=== PATIENT | female | born 1960 | race Caucasian/White ===

== ENCOUNTER → 2017-12-13 16:43 | Outpatient (REF) | payer BC, SELFPAY ==
--- NOTE | 2017-12-13 15:45 | PAPFT_PTH ---
PATIENT: Claudia Lanier LOC: [facility] U#:[id number] AGE/SX: 65/F ROOM: RE12/13/[address]: Bryanna Leiva MD, DC : 1960 BED: DIS: SPEC #: [id number] RECD: 12/14/17 12:44 STATUS: MARIA ISABEL REShawn #: [id number] JIAN: 12/13/17 15:[address]: Bryanna Leiva DEPT: [facility] Cytology RECD BY: Ynes Mak Tissues: 1 - CX/ENDOCX FOR PAP SMEARS Procedures: PAP THIN PREP/UVM Screening HPV DNA PROBE Comments: [id number]
== END ==
LOC: LBN 16:43
PROVIDERS: PCP Family Medicine; Visit Provider Family Medicine
DX: Z12.4 Encounter for screening for malignant neoplasm of cervix (principal); Z11.51 Encounter for screening for human papillomavirus (HPV)
CPT/HCPCS: 88142; 87624

== ENCOUNTER 2017-12-23 07:16 | Outpatient (CLI) | payer BC, SELFPAY ==
[2017-12-23 12:52] LABS: ALT 41 U/L (12-78); AST 24 U/L (15-37); Albumin 3.9 g/dL (3.4-5.0); Alkaline Phosphatase 100 U/L (46-116); Anion Gap 5.4 mmol/L (3-11); BUN 13 mg/dL (7-18); Bilirubin, Total 0.5 mg/dL (0.2-1.0); CO2 30.6 mmol/L (21.0-32.0); Calcium 8.7 mg/dL (8.5-10.1); Chloride 105 mmol/L (98-107); Cholesterol 219 mg/dL (50-200); Glucose 97 mg/dL (70-100); HDL Cholesterol 73 mg/dL (40-60); LDL CHOLESTEROL 139 mg/dL (<100); Potassium 4.2 mmol/L (3.5-5.1); Sodium 141 mmol/L (136-145); Total Protein 7.4 g/dL (6.4-8.2); Triglyceride 60 mg/dL (30-150)
== END 2017-12-23 07:17 ==
PROVIDERS: PCP Family Medicine; Visit Provider Family Medicine
DX: Z00.00 Encounter for general adult medical examination without abnormal findings (principal)
CPT/HCPCS: 36415; 80053; 80061; 83721; 84443

== ENCOUNTER 2018-12-18 12:13 | Outpatient (REF) | payer BC, SELFPAY ==
--- NOTE | 2018-12-18 11:45 | PAPFT_PTH ---
PATIENT: Claudia Lanier LOC: [facility] U#:[id number] AGE/SX: 58/F ROOM: RE12/18/[address]: Bryanna Leiva MD, DC : 1960 BED: DIS: 12/18/2018 SPEC #: [id number] RECD: 12/19/18 12:49 STATUS: MARIA ISABEL REQ #: [id number] JIAN: 12/18/18 11:[address]: Bryanna Leiva DEPT: [facility] Cytology RECD BY: Ynes Mak Tissues: 1 - CX/ENDOCX FOR PAP SMEARS Procedures: PAP THIN PREP/UVM Screening HPV DNA PROBE Comments: [id number]
== END 2018-12-18 12:33 ==
LOC: LBN 12:13
PROVIDERS: PCP Family Medicine; Visit Provider Family Medicine
DX: Z12.4 Encounter for screening for malignant neoplasm of cervix (principal); Z11.51 Encounter for screening for human papillomavirus (HPV)
CPT/HCPCS: 88142; 87624

== ENCOUNTER 2019-01-25 01:54 | Outpatient (CLI) | payer BC, SELFPAY ==
--- NOTE | 2019-01-25 08:30 | ETT_ITS ---
APPROVED REPORT Exam: Exercise Treadmill Patient Location: Out-Patient Room/Bed: Stress Nurse: Dolly Anderson RN Rhythm: NSR Indications: Patient reports right sided chest tightness and left scapula soreness at rest. Pt believ es this is related to stress. Discomfort does not change with exercise and it is reproducable with pa lpation. Pt reports her sister 2 weeks ago from a heart attack, she was 58 years old. She is concerned regarding her significant family hx for heart disease. Her mother at age 60 ye ars from an [place]. Her maternal grandfather at age 54 years also from an [place], per patient report . Medical History Medical History: Smoker:No Prior Cath:No Prior PCI:No History of DE:No Heart Failure:Unknown Prior CA BG:No Prior Heart Valve Surgery:No Diabetic:No Angina:Atypical Family History of CV Disease:Yes Histo ry Notes:Significant family hx of heart disease: Sister age 58 years from [place]. Mother decea sed age 60 years from [place]. Maternal ... Allergies: No known drug allergies Cardiac Risk Factors: Hyperlipidemia Pretest Chest Pain Characteristics: Atypical angina, Non-exertional Chest pain Exercise History: Physically active Stress Test Details Test: Exercise stress testing was performed using a Richard protocol. Rest Stress HR Resting HR: 63 bpm Max Heart Rate (APMHR): 159 bpm Max HR Achieved: 164 bpm Target HR (85% APMHR): 135 bpm % of APMHR: 103 Recovery HR: 87 bpm HR response to stress: Normal HR response to stress BP Resting BP: 138/82 mmHg Max BP: 190/82 mmHg Recovery BP: 134/80 mmHg BP response to stress: Normal blood pressure response to stress. ECG Resting ECG: Sinus Rhythm, low voltage precordial leads. Stress ECG: Sinus Tachycardia ST Change: No significant ST segment changes. Arrhythmia: VPC's Recovery ECG: Sinus Rhythm Recovery ST Change: No significant St segment changes. Clinical Reason for Termination: Maximal effort Highest Stage Achieved: Stage 4: 4.2 mph at 16% grade. Exercise capacity: 13.48 METs Overall Exercise Capacity for Age: Excellent Scale: Active Stress ECG Conclusion 1. This is a maximal study with normal heart rate and blood pressure response. 2. Patient demonstrated good exercise tolerance. 3. ECG: Non-ischemic 4. Gaona treadmill score predicts low risk for adverse myocardial events. No prior study available for comparison. Test Summary 1 00:59 0 0 0 1 130/80 1 00:00 0 0 84 1 130/80 1 03:00 10 1.7 99 4.64 134/72 2 02:59 12 2.5 120 7.05 146/72 3 03:00 14 3.4 133 10.16 162/84 4 02:00 16 4.2 162 13.48 162/84 1 06:30 0 0 164 1 134/80
== END 2019-01-25 02:14 ==
PROVIDERS: PCP Family Medicine; Visit Provider Family Medicine
DX: R07.89 Other chest pain (principal); Z82.49 Family history of ischemic heart disease and other diseases of the circulatory system; E78.5 Hyperlipidemia, unspecified
CPT/HCPCS: 93017

== ENCOUNTER 2019-03-26 00:54 | Outpatient (CLI) | payer BC, SELFPAY ==
--- NOTE | 2019-03-26 15:17 | DI.US_ITS ---
EXAM: US PELVIS TRANSVAGINAL CLINICAL HISTORY: DYSFUNCTION UTERINE BLEEDING, N93.8 TECHNIQUE: Ultrasound performed using standard protocol. COMPARISON: PELVIS TRANSVAG from 10/30/2014 FINDINGS: The uterus measures 7 centimeters long by 3.7 centimeters AP x 4.4 centimeters transverse. The endom etrial stripe is within normal limits at 5.8 millimeters. There is again seen a submucosal fibroid. It measures 1.5 x 1.5 x 1.8 centimeters. This compares to 2.1 centimeters on the prior examination. The patient is status post left oophorectomy. The right ovary measures 1.9 x 1.7 x 1.7 centimeters. There is normal blood flow. No evidence of to rsion. No significant free pelvic fluid or hydronephrosis is identified. Note is made of a 1.8 centimeters cyst on the right kidney. IMPRESSION: 1. Uterine fibroid. 2. Status post left oophorectomy.
== END 2019-03-26 01:14 ==
PROVIDERS: PCP Family Medicine; Visit Provider Family Medicine
DX: N93.8 Other specified abnormal uterine and vaginal bleeding (principal); D25.0 Submucous leiomyoma of uterus; Z90.721 Acquired absence of ovaries, unilateral
CPT/HCPCS: 76830; 76856

== ENCOUNTER 2020-04-10 00:13 | Outpatient (CLI) | payer BC, SELFPAY ==
--- NOTE | 2020-04-10 | DI.US_ITS ---
EXAM: US THYROID CLINICAL HISTORY: MULTI NODULAR GOITER,E04.2 TECHNIQUE: Ultrasound performed using standard protocol. COMPARISON: US US PELVIS TRANSVAGINAL from 03/26/2019 FINDINGS: Thyroid ultrasound was performed according to the usual protocol. Right thyroid lobe measures 49 x 20 x 22 millimeters. Left thyroid lobe measures 52 x 15 x 15 millim eters. The isthmus is about 5 millimeters in thickness. Thyroid parenchyma is heterogeneous with multiple nodules. Evaluation of the largest nodules was per formed with assignment of TI-RADS level by morphologic assessment. In the mid to inferior pole of the left thyroid lobe, there is a TR 5 lesion measuring 21 millimeters in greatest diameter. This is highly suspicious with fine needle aspiration recommended for size gr eater than 1 cm. In the midpole of the right thyroid lobe, there is a 25 millimeter in greatest diameter lesion with T R 3 classification, mildly suspicious, fine needle aspiration recommended for size greater than or eq ual to 2.5 cm. Additional right and left TR 4 lesions also noted, less than 1 cm in diameter, no follow up recommend ed. IMPRESSION: Fine needle aspiration recommended for bilateral thyroid nodules as described above utilizing TI-RADS criteria. DATA REPOSITORY:
== END 2020-04-10 00:33 ==
PROVIDERS: PCP Family Medicine; Visit Provider Otolaryngology
DX: E04.2 Nontoxic multinodular goiter (principal)
CPT/HCPCS: 76536

== ENCOUNTER 2021-01-02 05:03 | Outpatient (CLI) | payer BC, SELFPAY ==
--- NOTE | 2021-01-02 08:30 | DI.RAD_ITS ---
Exam(s) XR KNEE RT 3V AP,LAT,DANILO EXAM: XR KNEE RT 3V AP,LAT,DANILO CLINICAL HISTORY: r knee locking M23.91 INTERNAL DERANGEMENT RT KNEE. TECHNIQUE: 2D digital imaging was performed. COMPARISON: No exams were available for comparison FINDINGS: BONES: No acute fracture is present. No bony destructive lesion is seen. JOINTS: The knee is normally aligned. No joint effusion is seen. Mild narrowing medial femoral tibial joint space. Mild periarticular spurring. SOFT TISSUE: Normal. IMPRESSION: Mild degenerative changes of the medial femoral tibial joint space. DATA REPOSITORY: RADIATION DOSE DELIVERED:
== END 2021-01-02 05:23 ==
PROVIDERS: PCP Family Medicine; Visit Provider Family Medicine
DX: M23.91 Unspecified internal derangement of right knee (principal); M17.11 Unilateral primary osteoarthritis, right knee
CPT/HCPCS: 73562

== ENCOUNTER 2021-01-12 17:42 | Emergency (ER) | payer BC, SELFPAY ==
[2021-01-12 17:45] VITALS: BP 135/88; PULSE 75; RESP 16; TEMP 36.8; O2SAT 99
--- NOTE | 2021-01-12 17:45 | DI.RAD_ITS ---
Exam(s) XR WRIST LT COMPLETE EXAM: XR WRIST LT COMPLETE CLINICAL HISTORY: LEONARDO, r/o fx. TECHNIQUE: 2D digital imaging was performed of the left wrist. Four images were obtained. Scaphoid , PA, oblique and lateral views were obtained. COMPARISON: No exams were available for comparison FINDINGS: BONES: There is an acute nondisplaced fracture through the distal metaphysis of the left radius. The re does appear to be distal extension into the articular surface. No bony destructive lesion is seen . JOINTS: The carpal bones are normally aligned. SOFT TISSUE: Normal. IMPRESSION: Nondisplaced intra-articular distal left radial fracture. DATA REPOSITORY: RADIATION DOSE DELIVERED:
--- NOTE | 2021-01-12 17:53 | W.ED.GENAD ---
Discharge Plan Disposition Patient Disposition: HOME Condition: Stable Discharge Details Clinical Impression: Distal radius fracture, left Primary Care Provider: Bryanna Leiva ED Provider: America Coy Home Meds and New Rx's Prescriptions: Continued turmeric root extract 500 mg capsule See Rx Instructions PO DAILY RF: 0 garlic 600 mg capsule 1,000 mg PO BID RF: 0 coenzyme Q10 [CoQ-10] 100 mg capsule 100 mg PO DAILY RF: 0 Complete Multivitamin tablet 1 tab PO DAILY RF: 0 magnesium oxide 400 mg magnesium tablet 400 mg PO QHS RF: 0 vitamin K2 40 mcg tablet See Rx Instructions PO DAILY RF: 0 omega-3 fatty acids 1,000 mg capsule 4,000 mg PO DAILY RF: 0 ascorbic acid (vitamin C) [Vitamin C] 1,000 mg tablet 1,600 mg PO BID RF: 0 cholecalciferol (vitamin D3) [Vitamin D3] 25 mcg (1,000 unit) capsule 5,000 unit PO DAILY RF: 0 Discharge Instructions Instructions: Wrist Fracture in Adults (ED) Additional Instructions: Rest, ice, and elevate the affected area as much as possible. Alternate tylenol and motrin as needed and directed for pain. Take the oxycodone for pain not relieved with Tylenol or Motrin. Call the orthopedics office tomorrow morning to schedule a follow-up appointment for reevaluation this week. Return immediately to the emergency department if you develop any worsening or new concerning symptoms. Referrals: Suraj Ford MD [ [facility] STAFF PHYSICIAN] - Discharge Data Discharge Date/Time-TO BE ENTERED AT DEPARTURE: 01/12/21 20:27 Discharge Physician: America Coy Medical Decision Making 61-year-old female presents with left wrist pain with radiation to her left forearm after fall onto her left wrist while playing pickle ball today. She has tenderness to palpation of left dorsal and volar wrist with limitation of range of motion secondary to pain. She has edema noted on the volar aspect of the distal forearm just above the wrist. There is otherwise no significant deformity. She is neurovascular intact. There is no evidence of trauma to her left elbow or shoulder. Patient referred for x-rays which note nondisplaced fracture through the distal left radius. Minimal impaction dorsally. It appears to be mildly comminuted and intra-articular. Patient declined any pain medication here. She was offered oxycodone for home and a prescription but declined. A volar splint was placed at bedside and a sling given. Advised on the importance of RICE, alternating Tylenol and motrin. Patient placed on orthopedic follow-up list. Usual and customary return precautions given prior to discharge. Medical Records Medical records reviewed: Yes I reviewed the patient's medical records. Imaging Data Radiologic Study: Radiologist's impression: XR Left Wrist Exam date and time: 01/12/2021 6:00 PM Age: 61 years old Clinical indication: Pain; Wrist; Left; Patient HX: Mikayla; Additional info: R/O FX TECHNIQUE: Imaging protocol: XR Left wrist. Views: 3 or more views. COMPARISON: No relevant prior studies available. FINDINGS: Bones/joints: There is a nondisplaced fracture through the distal left radius. Minimal impaction dorsally. It appears to be mildly comminuted and intra-articular. Soft tissues: Normal. IMPRESSION: Distal left radial fracture as above HPI General Mode of arrival: ambulatory. Date/Time Provider Initiated Documentation: 01/12/21 17:53. Limitations to Documentation: no limitations. Information obtained by: patient. HPI Narrative: Patient is a 61-year-old female who presents with left wrist pain after fall while playing pickle ball prior to arrival. Patient states she slipped and fell onto her left wrist. She states she does have radiating pain into her forearm but states the main pain is in her left wrist. She denies any other injuries. She took 2 ibuprofen prior to arrival Related Data Home Medications Medication Instructions Recorded Confirmed coenzyme Q10 100 mg capsule 100 mg PO DAILY 09/14/18 01/12/21 multivitamin,[id number]-[id number]-ehlfvpms 1 tab PO DAILY 09/14/18 01/12/21 magnesium oxide 400 mg PO QHS tab 12/20/19 01/12/21 turmeric root extract 500 mg See Rx Instructions PO DAILY 12/20/19 01/12/21 capsule vitamin K2 40 mcg tablet See Rx Instructions PO DAILY 12/20/19 01/12/21 ascorbic acid (vitamin C) 1,000 mg 1,600 mg PO BID tab 12/25/20 01/12/21 tablet cholecalciferol (vitamin D3) 25 5,000 unit PO DAILY cap 12/25/20 01/12/21 mcg (1,000 unit) capsule garlic 600 mg capsule 1,000 mg PO BID cap 12/25/20 01/12/21 omega-3 fatty acids 1,000 mg 4,000 mg PO DAILY cap 12/25/20 01/12/21 capsule Allergies Allergy/AdvReac Type Severity Reaction Status Date / Time vaccine adjuvant system, AdvReac Local Verified 01/12/21 18:26 AS01B liposomal redness [From Shingrix (PF)] and swelling varicella-zoster virus AdvReac Local Verified 01/12/21 18:26 glycoprotein E, recombinant redness [From Shingrix (PF)] and swelling General Stated Complaint: Orthopedic HOLLIS: 4 Review of Systems All systems reviewed & are unremarkable except as noted in HPI and below Constitutional Constitutional: Reports as per HPI, Denies chills and Denies fever(s) Eyes Eyes: Denies blurry vision ENT Ears, Nose, Mouth, and Throat: Denies dizziness, Denies sore throat and Denies throat swelling Cardiovascular Cardiovascular: Denies chest pain and Denies dyspnea Respiratory Respiratory: Denies cough and Denies dyspnea Gastrointestinal Gastrointestinal: Denies abdominal pain, Denies diarrhea and Denies vomiting Genitourinary Genitourinary: Denies hematuria and Denies dysuria Musculoskeletal Musculoskeletal: Denies back pain, Denies numbness and Reports other (L wrist pain) Integumentary/Breasts Skin/Breast: Denies lesions and Denies rash Neurologic Neurologic: Denies dizziness, Denies localized weakness and Denies numbness Allergic/Immunologic Allergic/Immunologic: Denies throat swelling [facility] Medical History (Updated 01/12/21 @ 20:01 by America Coy DO) Anemia (10/02/12) 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/24/17) Surgical History Cholecystectomy Endometrial Biopsy NEG History of bilateral ligation of fallopian tubes Ligation of fallopian tube Status post cholecystectomy Status post tonsillectomy Tonsillectomy Family History (Updated 12/22/19 @ 13:12 by Sri Zayas) Mother , Age 60 Essential hypertension Heart disease [place] Hyperlipidemia Stroke Alcohol abuse Substance abuse Father , age 72 Alcohol abuse Throat cancer Lung cancer Sister Heart disease Alcohol abuse Stroke Substance abuse Hypertension Brother Heart disease Hyperlipidemia Depression Hypertension Maternal Grandfather , 40s Heart disease Paternal Grandfather , 60s Pulmonary tuberculosis Heart disease Maternal Grandmother , 50s Alcohol abuse Stomach cancer Paternal Grandmother , 50s Liver cancer Sister Alcohol abuse Hyperlipidemia Hypertension Substance abuse Son No problems noted. Son Depression Hyperlipidemia Social History (Updated 01/03/21 @ 13:40 by Sri Zayas) Smoking/Tobacco Use Status: Never Second Hand Exposure: Yes Smoking risk assessment performed?: Yes Alcohol Intake: current Alcohol Intake frequency: a few times a week Alcohol type: wine Drug use: Never Caregiver/Support person: No Household members: spouse Housing: house Communication Needs: None Do you need help understanding health information?: Never Pets and animals: Yes Pets and animals: cat(s) Sexually active: Yes Do you think of yourself as: straight/heterosexual Current gender identity: female What is your relationship status?: How often do you talk on the phone with friends or family?: decline to answer How often do you get together with friends or relatives?: decline to answer How often do you attend sikhism or catholic services?: decline to answer Do you belong to any clubs or organized social groups?: no Panel score (0-1 are the most socially isolated patients): 1 What type of physical activity do you participate in: walking Duration: 30-45 minutes/day Frequency: 3-4 times per week Alysia/Islam: No preference Special alysia needs: No Seatbelt use: always Drive intox or ride w/intox reefer truck driver: No Exam Const General: cooperative, healthy appearing and no acute distress HENMT Head: normal to inspection Mouth: oral mucosae normal Eyes General: appearance normal, both eyes and all related structures Neck Neck: normal visual inspection Resp Effort & Inspection: normal respiratory effort and able to speak in complete sentences Cardio Rate: regular rate Skin General skin exam: no rashes or lesions noted Neuro General: patient alert, patient awake and patient oriented x3 Motor: muscle tone normal throughout Extrem Other: Tenderness to palpation of left dorsal and volar wrist. She has limited flexion, extension, supination and pronation secondary to pain. There is edema noted on volar aspect of left forearm just above distal wrist. There is no obvious deformity. Left radial and ulnar pulses intact. She has no tenderness to palpation of the left radial head, left elbow, left upper arm or left shoulder Psych Appearance: grossly normal Affect: normal affect Course Vital Signs Vital signs: Vital Signs Temperature 98.2 F 01/12/21 17:45 Pulse 75 01/12/21 17:45 Respiratory Rate 16 01/12/21 17:45 Blood Pressure 135/88 01/12/21 17:45 Pulse Oximetry 99 01/12/21 17:45 Temperature 98.2 F 01/12/21 17:45 Temperature Source Skin 01/12/21 17:45 Pulse 75 01/12/21 17:45 Respiratory Rate 16 01/12/21 17:45 Respiratory Effort 01/12/21 17:49 Blood Pressure 135/88 01/12/21 17:45 Pulse Oximetry 99 01/12/21 17:45 Oxygen Delivery Method Room Air 01/12/21 17:45 Oxygen Flow Rate 0 01/12/21 17:45 Pain Level 7 01/12/21 17:45 Procedures Orthopedic Splinting/Casting Injury #1: Side: left Upper Extremity Injury Location: wrist Upper Extremity Immobilizer: volar splint
--- NOTE | 2021-01-12 18:28 | NUR.NOTE ---
Ambulates to DI with cryptologic technician technical. Gait steady.Nursing Note:
--- NOTE | 2021-01-12 19:30 | DI.VRAD_ITS ---
PROCEDURE INFORMATION: Exam: XR Left Wrist Exam date and time: 01/12/2021 6:00 PM Age: 61 years old Clinical indication: Pain; Wrist; Left; Patient HX: Mikayla; Additional info: R/O FX TECHNIQUE: Imaging protocol: XR Left wrist. Views: 3 or more views. COMPARISON: No relevant prior studies available. FINDINGS: Bones/joints: There is a nondisplaced fracture through the distal left radius. Minimal impaction dorsally. It appears to be mildly comminuted and intra-articular. Soft tissues: Normal. IMPRESSION: Distal left radial fracture as above Dictated and Authenticated by: Bob Mejia MD. Ordering:NINFA Cross MD
--- NOTE | 2021-01-12 23:39 | NUR.NOTE ---
i faxed follow up with ortho to care management , sam ed Nursing Note:
== END 2021-01-12 20:27 | disposition home or self-care (01) ==
PROVIDERS: Emergency Provider Physician Assistant; PCP Family Medicine
DX: S52.592A Other fractures of lower end of left radius, initial encounter for closed fracture (principal); W18.39XA Other fall on same level, initial encounter
CPT/HCPCS: 29125; 99283; 73110

== ENCOUNTER 2021-01-20 14:03 | Outpatient (CLI) | payer BC, SELFPAY ==
--- NOTE | 2021-01-20 13:45 | DI.RAD_ITS ---
Exam(s) XR WRIST LT LIMITED EXAM: XR WRIST LT LIMITED CLINICAL HISTORY: left distal radius fracture. TECHNIQUE: 2D digital imaging was performed of the left wrist. Two images were obtained. PA and la teral views were obtained. COMPARISON: CR,XR XR WRIST LT COMPLETE from 01/12/2021 CR,XR XR WRIST LT COMPLETE from 01/12/2021 FINDINGS: BONES: There has been no change in alignment of the nondisplaced distal left radial fracture. No bon y destructive lesion is seen. JOINTS: The carpal bones are normally aligned. SOFT TISSUE: The patient's wrist is in a cast which does obscure the underlying bony detail. IMPRESSION: Stable distal left radial fracture. DATA REPOSITORY: RADIATION DOSE DELIVERED:
== END 2021-01-20 14:04 | disposition home or self-care (01) ==
LOC: DIORS 14:04
PROVIDERS: PCP Family Medicine; Referring Provider Family Medicine; Visit Provider Physician Assistant
DX: S52.502A Unspecified fracture of the lower end of left radius, initial encounter for closed fracture (principal)
CPT/HCPCS: 73100

== ENCOUNTER 2021-01-28 14:02 | Outpatient (CLI) | payer BC, SELFPAY ==
--- NOTE | 2021-01-28 13:30 | DI.RAD_ITS ---
Exam(s) XR WRIST LT LIMITED EXAM: XR WRIST LT LIMITED CLINICAL HISTORY: left distal radius fracture. TECHNIQUE: 2D digital imaging was performed of the left wrist. Two images were obtained. PA and la teral views were obtained. COMPARISON: CR XR WRIST LT LIMITED from 01/20/2021 FINDINGS: BONES: There has been no change in alignment of the distal left radial fracture. The fracture lines are still visualized. No new fracture is identified. No bony destructive lesion is seen. JOINTS: The carpal bones are normally aligned. SOFT TISSUE: Normal. The cast has been removed. IMPRESSION: Stable distal left radial fracture. DATA REPOSITORY: RADIATION DOSE DELIVERED:
== END 2021-01-28 14:03 | disposition home or self-care (01) ==
LOC: DIORS 14:02
PROVIDERS: PCP Family Medicine; Referring Provider Family Medicine; Visit Provider Physician Assistant
DX: S52.592D Other fractures of lower end of left radius, subsequent encounter for closed fracture with routine healing (principal)
CPT/HCPCS: 73100

== ENCOUNTER 2021-02-05 02:38 | Outpatient (CLI) | payer BC, SELFPAY ==
[2021-02-05 10:19] LABS: ALT 35 U/L (14-59); AST 19 U/L (15-37); Alkaline Phosphatase 102 U/L (46-116); Anion Gap 8.8 mmol/L (3-11); BUN 12 mg/dL (7-18); Bilirubin, Total 0.7 mg/dL (0.2-1.0); CO2 29.2 mmol/L (21.0-32.0); CREATININE 0.9 mg/dL (0.55-1.02); Calculated LDL 150 mg/dL (<100); Chloride 106 mmol/L (98-107); Cholesterol 231 mg/dL (<200); Glucose 95 mg/dL (74-106); HDL Cholesterol 65 mg/dL (40-60); Potassium 3.9 mmol/L (3.5-5.1); Sodium 144 mmol/L (136-145); TSH (W/Ref FT4) 0.37 uIU/mL (0.36-3.74); Total Protein 7.3 g/dL (6.4-8.2); Triglyceride 80 mg/dL (<150)
== END 2021-02-05 02:39 | disposition home or self-care (01) ==
LOC: LBO 02:38
PROVIDERS: PCP Family Medicine; Visit Provider Family Medicine
DX: Z00.00 Encounter for general adult medical examination without abnormal findings (principal)
CPT/HCPCS: 36415; 80053; 80061; 84443

== ENCOUNTER 2021-02-25 13:26 | Outpatient (CLI) | payer BC, SELFPAY ==
--- NOTE | 2021-02-25 13:00 | DI.RAD_ITS ---
Exam(s) XR WRIST LT LIMITED EXAM: XR WRIST LT LIMITED CLINICAL HISTORY: L wrist fx. TECHNIQUE: 2D digital imaging was performed. COMPARISON: CR XR WRIST LT LIMITED from 01/28/2021 FINDINGS: Again noted is the nondisplaced healing fracture site in the distal radius. Fracture line is denoted by a sclerotic linear line at this time. No displacement. Ulnar styloid is intact. There is no significant ulnar variance. Remainder of the carpal row bones appear intact. IMPRESSION: Further healing at the distal radius fracture site. Sign rib DATA REPOSITORY: RADIATION DOSE DELIVERED:
== END 2021-02-25 13:27 | disposition home or self-care (01) ==
LOC: DIORS 13:26
PROVIDERS: PCP Family Medicine; Referring Provider Family Medicine; Visit Provider Physician Assistant
DX: S52.592D Other fractures of lower end of left radius, subsequent encounter for closed fracture with routine healing (principal); W18.39XD Other fall on same level, subsequent encounter
CPT/HCPCS: 73100

== ENCOUNTER → 2021-10-15 18:23 | Outpatient (CLI) | payer BC, SELFPAY ==
--- NOTE | 2021-10-15 16:30 | DI.RAD_ITS ---
Exam(s) XR HEEL RT OS CALCIS EXAM: XR HEEL RT OS CALCIS CLINICAL HISTORY: heel pain--M79.673. TECHNIQUE: 2D digital imaging was performed. Two views were obtained. COMPARISON: No exams were available for comparison FINDINGS: BONES: No acute fracture is present. No bony destructive lesion is seen. There is a tiny plantar tammy caneal spur. JOINTS: No dislocation present. SOFT TISSUE: Normal. IMPRESSION: Tiny plantar calcaneal spur. DATA REPOSITORY: RADIATION DOSE DELIVERED:
--- NOTE | 2021-10-15 17:25 | DI.VRAD_ITS ---
PROCEDURE INFORMATION: Exam: XR Right Calcaneus Exam date and time: 10/15/2021 4:56 PM Age: 61 years old Clinical indication: Right; Patient HX: Heel pain TECHNIQUE: Imaging protocol: Radiologic exam of the Right calcaneus. Views: 2 or more views. COMPARISON: CR XR KNEE RT 3V AP,LAT,DANILO 01/02/2021 2:32 PM FINDINGS: Bones/joints: Tiny calcaneal spur. There is no evidence of acute fracture. Soft tissues: Mild soft tissue swelling. IMPRESSION: 1. Mild soft tissue swelling. 2. Tiny calcaneal spur. 3. No evidence of acute fracture. Dictated and Authenticated by: Chris Vincent MD. Ordering:DARLENE Gonzalez MD
== END ==
PROVIDERS: PCP Family Medicine; Visit Provider Physician Assistant
DX: M77.31 Calcaneal spur, right foot; M79.89 Other specified soft tissue disorders
CPT/HCPCS: 73650

== ENCOUNTER 2022-01-05 09:09 | Outpatient (CLI) | payer BC, SELFPAY ==
[2022-01-05 12:38] LABS: HCT 39.7 % (36.0-46.0); HGB 13.2 g/dL (11.2-15.7); MCH 30.3 pg (27.0-33.0); MCHC 33.2 % (32.0-36.0); MCV 91 fL (80-95); MPV 10.3 fL (8.0-11.0); Platelet Count 189 10^3/uL (130-400); RBC 4.36 10^6/uL (3.93-5.22); RDW 12.6 % (11.7-14.6); RDW-SD 41.9 fL; WBC 2.94 10^3/uL (4.4-10.8)
[2022-01-05 12:58] LABS: ALT 34 U/L (14-59); AST 22 U/L (15-37); Albumin 3.9 g/dL (3.4-5.0); Alkaline Phosphatase 92 U/L (46-116); BUN 17 mg/dL (7-18); Bilirubin, Total 0.6 mg/dL (0.2-1.0); Calcium 9.2 mg/dL (8.5-10.1); Calculated LDL 155 mg/dL (<100); Chloride 103 mmol/L (98-107); Cholesterol 242 mg/dL (<200); Glucose 103 mg/dL (74-106); HDL Cholesterol 73 mg/dL (40-60); Potassium 3.8 mmol/L (3.5-5.1); Sodium 140 mmol/L (136-145); TSH (W/Ref FT4) 0.53 uIU/mL (0.36-3.74); Total Protein 7.9 g/dL (6.4-8.2); Triglyceride 72 mg/dL (<150)
== END 2022-01-05 09:10 | disposition home or self-care (01) ==
LOC: LOS 09:09
PROVIDERS: PCP Family Medicine; Referring Provider Family Medicine; Visit Provider Family Medicine
DX: Z00.00 Encounter for general adult medical examination without abnormal findings (principal)
CPT/HCPCS: 36415; 80053; 80061; 85027; 84443

== ENCOUNTER 2022-01-05 09:25 | Outpatient (REF) | payer BC, SELFPAY ==
--- NOTE | 2022-01-05 08:30 | PAPFT_PTH ---
PATIENT: Claudia Lanier LOC: [facility] U#:[id number] AGE/SX: 61/F ROOM: RE01/05/[address]: Bryanna Leiva MD, DC : 1960 BED: DIS: 01/05/2022 SPEC #: [id number] RECD: 01/05/22 13:20 STATUS: MARIA ISABEL REQ #: [id number] JIAN: 01/05/22 08:[address]: Bryanna Leiva DEPT: [facility] Cytology RECD BY: Ynes Mak Tissues: 1 - CX/ENDOCX FOR PAP SMEARS Procedures: PAP THIN PREP/UVM Screening HPV DNA PROBE Comments: [id number]
== END 2022-01-05 09:26 | disposition home or self-care (01) ==
LOC: LBN 09:25
PROVIDERS: PCP Family Medicine; Visit Provider Family Medicine
DX: Z12.4 Encounter for screening for malignant neoplasm of cervix (principal); Z11.51 Encounter for screening for human papillomavirus (HPV)
CPT/HCPCS: 88142; 87624